=== PATIENT | male | born 1980 | race Caucasian/White ===

== ENCOUNTER 2017-12-28 19:01 | Emergency (ER) | payer OTHER ==
[~2017-12-28] VITALS: Ht 185.4 cm; Wt 81.6 kg
[~2017-12-28 19:01] MED LIST: MOBIC15 MG PO; ORPH100T PO
[2017-12-28] MEDS ORDERED: SYNTHROID100 MCG (19:31)
== END 2017-12-29 03:11 | disposition home or self-care (01) ==
LOC: ER 19:01
DX: G43.909 Migraine, unspecified, not intractable, without status migrainosus (principal)

== ENCOUNTER → 2018-01-08 | Emergency (ER) | payer OTHER ==
[~2018-01-08] VITALS: Ht 182.9 cm; Wt 83.9 kg
[~2018-01-08] MED LIST changes: +SYNTHROID100 MCG
== END | disposition home or self-care (01) ==
LOC: ER 19:26
DX: T78.49XA Other allergy, initial encounter (principal); R13.10 Dysphagia, unspecified

== ENCOUNTER 2018-06-04 18:00 | Emergency (ER) | payer OTHER ==
[~2018-06-04] VITALS: Ht 185.4 cm; Wt 83.9 kg
== END 2018-06-04 19:59 | disposition home or self-care (01) ==
LOC: ER 18:00
DX: S90.02XA Contusion of left ankle, initial encounter (principal); X50.3XXA Overexertion from repetitive movements, initial encounter; Y93.89 Activity, other specified; Y92.89 Other specified places as the place of occurrence of the external cause; Y99.8 Other external cause status

== ENCOUNTER 2018-10-21 12:19 | Emergency (ER) | payer OTHER ==
[~2018-10-21] VITALS: Ht 185.4 cm; Wt 86.2 kg
[2018-10-21] MEDS ORDERED: ZOCOR20 MG PO (12:55)
[2018-10-21] MEDS ORDERED: AMOXICILLIN500 MG PO (12:55)
[2018-10-21] MEDS ORDERED: SYNTHROID175 MCG PO (12:55)
[2018-10-21] MEDS ORDERED: IBUPROFEN800 MG PO (15:25)
[2018-10-21] MEDS ORDERED: ZITHROMAX TRI-500 MG PO (15:25)
== END 2018-10-21 15:38 | disposition home or self-care (01) ==
LOC: ER 12:19
DX: J06.9 Acute upper respiratory infection, unspecified (principal)

== ENCOUNTER 2019-01-26 21:10 | Emergency (ER) | payer OTHER ==
[~2019-01-26] VITALS: Ht 185.4 cm; Wt 86.2 kg
[~2019-01-26 21:10] MED LIST changes: +AMOXICILLIN500 MG PO; +IBUPROFEN800 MG PO; +SYNTHROID175 MCG PO; +ZITHROMAX TRI-500 MG PO; +ZOCOR20 MG PO
== END 2019-01-26 23:32 | disposition home or self-care (01) ==
LOC: ER 21:10
DX: G43.809 Other migraine, not intractable, without status migrainosus (principal)

== ENCOUNTER 2019-09-28 13:25 | Emergency (ER) | payer OTHER ==
[~2019-09-28] VITALS: Ht 185.4 cm; Wt 86.2 kg
== END 2019-09-28 16:11 | disposition home or self-care (01) ==
LOC: ER 13:25
DX: B34.9 Viral infection, unspecified (principal)

== ENCOUNTER 2020-09-22 16:02 | Emergency (ER) | payer OTHER ==
[~2020-09-22] VITALS: Ht 182.9 cm; Wt 86.2 kg
[2020-09-22] MEDS ORDERED: ORPHENADRINE C100 MG PO (20:15)
[2020-09-22] MEDS ORDERED: NAPROXEN375 MG PO (20:15)
[2020-09-22] MEDS ORDERED: PROAIR RESPICL90 MCG IH (20:18)
== END 2020-09-22 20:22 | disposition home or self-care (01) ==
LOC: ER 16:02
DX: S29.011A Strain of muscle and tendon of front wall of thorax, initial encounter (principal); M94.0 Chondrocostal junction syndrome [Tietze]; R07.89 Other chest pain; X50.0XXA Overexertion from strenuous movement or load, initial encounter; Y93.F2 Activity, caregiving, lifting; Y92.89 Other specified places as the place of occurrence of the external cause; Y99.8 Other external cause status; Z03.818 Encounter for observation for suspected exposure to other biological agents ruled out

== ENCOUNTER 2021-02-07 12:10 | Emergency (ER) | payer OTHER ==
[~2021-02-07] VITALS: Ht 185.4 cm; Wt 86.2 kg
[~2021-02-07 12:10] MED LIST changes: +NAPROXEN375 MG PO; +ORPHENADRINE C100 MG PO; +PROAIR RESPICL90 MCG IH
[2021-02-07] MEDS ORDERED: VISTARIL50 MG PO (16:09)
[2021-02-07] MEDS ORDERED: SYNTHROID150 MCG PO (16:09)
== END 2021-02-07 16:19 | disposition home or self-care (01) ==
LOC: ER 12:10
DX: R07.89 Other chest pain (principal); E03.8 Other specified hypothyroidism

== ENCOUNTER → 2021-12-27 | Emergency (ER) | payer OTHER ==
[~2021-12-27] VITALS: Ht 185.4 cm; Wt 74.8 kg
[~2021-12-27] MED LIST changes: +DICLOFENAC POTA50 MG PO; +LIPOFEN150 MG; +SYNTHROID150 MCG PO; +VISTARIL50 MG PO
== END ==
LOC: ER 09:48
DX: R07.89 Other chest pain (principal); R07.1 Chest pain on breathing

== ENCOUNTER 2023-05-18 09:56 | Emergency (ER) | payer OTHER ==
[~2023-05-18] VITALS: Ht 185.4 cm; Wt 81.6 kg
[2023-05-18] MEDS ORDERED: DICLOFENAC SODI75 MG PO (11:54)
== END 2023-05-18 12:00 | disposition home or self-care (01) ==
LOC: ER 09:56
DX: R05.9 Cough, unspecified (principal); M54.9 Dorsalgia, unspecified

== ENCOUNTER 2024-05-19 12:10 | Emergency (ER) | payer OTHER ==
[~2024-05-19] VITALS: Ht 185.4 cm; Wt 86.2 kg
[~2024-05-19 12:10] MED LIST changes: +DICLOFENAC SODI75 MG PO
[2024-05-19] MEDS ORDERED: BUTALB/ACETAMINOPHEN/CAFFEINE 1 TAB TABLET PO ONE ×2 (14:45→15:15)
[2024-05-19 15:48] LABS: URINE BILIRRUBIN Negative (NEGATIVE); URINE BLOOD Negative; URINE COLOR Yellow; URINE GLUCOSE Negative (NEGATIVE); URINE KETONE Trace (NEGATIVE); URINE LEUKOCYTE Negative; URINE NITRATE Negative; URINE PROTEIN Trace (NEGATIVE)
[2024-05-19 15:50] LABS: URINE BACTERIA 15.1 uL (0.0-1933); URINE EPITHELIAL CELLS 2.1 uL (0.0-38.8); URINE RBC 3.2 uL (0.0-20.8); URINE WBC 3.8 uL (0.0-23.2)
[2024-05-19 15:55] LABS: HEMATOCRIT 43.6 % (39.0-48.0); HEMOGLOBIN 15.3 g/dL (13-16.00); MEAN CORPUSCULAR HEMOGLOBIN 31.9 pg (27.00-32.0); MEAN CORPUSCULAR HGB CONC 35.1 g/dl (32.0-36.0); PLATELET COUNT 193 K/uL (150-450); RED BLOOD COUNT 4.79 M/uL (4.00-6.00); RED CELL DISTRIBUTION WIDTH 12.7 % (11.5-14.5)
[2024-05-19 16:06] LABS: URINE APPEARANCE CLEAR; URINE CAST 0.45 uL (0.0-1.40)
[2024-05-19 16:19] LABS: ALBUMIN 4.3 gm/dL (3.4-5.0); BILIRUBIN TOTAL 0.28 mg/dL (0.3-1.2); CALCIUM 9.5 mg/dL (8.5-10.1); CREATININE SERUM 1.13 mg/dL (0.70-1.30); GFR 70.17; GLOBULINA 3.9 G/DL (2.4-3.5); POTASSIUM 3.36 mEq/L (3.5-5.1); TOTAL PROTEIN 8.2 gm/dL (6.4-8.2)
== END 2024-05-19 18:17 | disposition home or self-care (01) ==
LOC: ER 12:11
PROVIDERS: Emergency Medicine
DX: B34.9 Viral infection, unspecified (principal); Z20.822 Contact with and (suspected) exposure to COVID-19

== ENCOUNTER 2025-10-08 12:28 | Emergency (ER) | payer OTHER ==
[~2025-10-08] VITALS: Ht 185.4 cm; Wt 83.9 kg
[2025-10-08 12:35] VITALS: BP 143/99; O2SAT 95
[2025-10-08] MEDS ORDERED: FENOFIBRATE145 MG PO (12:35)
[2025-10-08] MEDS ORDERED: GUAIFENESIN 200 MG/10 ML BLIST.PACK PO STA (13:57)
[2025-10-08] MEDS ORDERED: CEFTRIAXONE SODIUM 1,000 MG VIAL IM STA (13:57)
[2025-10-08] MEDS ORDERED: KETOROLAC TROMETHAMINE 30 MG VIAL IM STA (13:58)
[2025-10-08] MEDS ORDERED: KETOROLAC TROMETHAMINE 30 MG VIAL ONE ×2 (13:59→14:28)
[2025-10-08] MEDS ORDERED: METHYLPREDNISOLONE SOD SUCC 125 MG VIAL IM STA (13:59)
[2025-10-08] MEDS ORDERED: CEFTRIAXONE SODIUM 1,000 MG VIAL ONE (13:59)
[2025-10-08] MEDS ORDERED: GUAIFENESIN 200 MG/10 ML BLIST.PACK PO ONE (14:00)
[2025-10-08 14:27] LABS: BASO % 0.6 % (0.1-1.2); EOS # 0.04 (0.04-0.54); EOS % 0.7 % (0.7-7.0); LYMPH # 1.54 (1.18-3.74); LYMPH % 28.5 % (19.3-53.1); MEAN PLATELET VOLUME 10.80 fl (9.4-12.4); MONO # 0.54 (0.24-0.82); MONO % 10.0 % (4.7-12.5); NEUT # 3.21 (1.56-6.13); NEUT % 59.5 % (34.0-71.1); RED CELL DISTRIBUTION WIDTH 12.3 % (11.6-14.4)
[2025-10-08 15:32] LABS: COVID-19 AG NEGATIVE (NEGATIVE)
== END 2025-10-08 18:04 | disposition home or self-care (01) ==
LOC: ER 12:29
PROVIDERS: General Practice
DX: J98.8 Other specified respiratory disorders (principal); Z87.09 Personal history of other diseases of the respiratory system; Z20.822 Contact with and (suspected) exposure to COVID-19